=== PATIENT | male | born 1985 | race Two or more races ===

== ENCOUNTER 2019-01-26 08:32 | Emergency (ER) | payer OTHER ==
[2019-01-26 08:38] VITALS: BP 144/79
--- NOTE | 2019-01-26 08:41 | EDPHY ---
H & P Time Seen by Provider: 01/26/19 08:41 HPI/ROS: CHIEF COMPLAINT: Right ankle injury HISTORY OF PRESENT ILLNESS: Twisted on a rock about 1 week ago and is still limping, arrives on crutches with right ankle pain. No knee or foot symptoms. REVIEW OF SYSTEMS: No weakness distally, does have some tingling in his toes but no complete loss of sensation. PAST MEDICAL HISTORY: Thyroid Social history: Here with family General Appearance: Alert and conversant, cooperative. Normal range of motion of the knee, proximal tib-fib nontender with normal compartments. Bruising around the ankle both medially and laterally, Achilles is nontender. Medial and lateral malleolar tenderness to palpation. No 5th metatarsal or other foot tenderness. Normal motor sensory and vascular in the foot, normal sensation to light touch. Normal dorsalis pedis pulse. Emergency Department course/MDM: Has crutches, right ankle x-ray discussed consented. 854: Ankle x-ray shows sprain without fracture, soft tissue swelling present. Stirrup splint and orthopedic referral. Declined pain medication, Tylenol or Motrin, says he will take at home. Job involves mostly sitting, does not require time off work. Constitutional: Initial Vital Signs Temperature (C) 36.9 C 01/26/19 08:35 Heart Rate 71 01/26/19 08:35 Respiratory Rate 18 01/26/19 08:35 Blood Pressure 144/79 H 01/26/19 08:35 O2 Sat (%) 96 01/26/19 08:35 O2 Delivery Mode Room Air Allergies/Adverse Reactions: No Known Allergies Allergy (Verified 01/26/19 08:34) Home Medications: Medication Instructions Recorded Synthroid 08/07/12 Tamsulosin HCl [Flomax 0.4 MG (RX)] 0.4 mg PO .DAILY #2 cap 08/07/12 MDM/Departure - MDM Imaging Results: Imaging Impressions Ankle X-Ray 01/26/19 08:41 Impression: Lateral ankle sprain. No acute fracture. - Depart Disposition: Home, Routine, Self-Care Clinical Impression: Sprain of unspecified ligament of right ankle, initial encounter Condition: Good Instructions: Ankle Sprain (ED) Additional Instructions: Wear splint when walking, your allowed to weight-bear as tolerated. Please follow up with Orthopedics later this week if you're still unable to walk on it. Referrals: Maximiliano Elias DO [Doctor of Osteopathy] - As per Instructions Beto Arevalo MD [Medical Doctor] - 3-4 days, if not improved
== END 2019-01-26 09:10 | disposition home or self-care (01) ==
DX: S93.401A Sprain of unspecified ligament of right ankle, initial encounter (principal); W18.41XA Slipping, tripping and stumbling without falling due to stepping on object, initial encounter
CPT/HCPCS: L4350